=== PATIENT | female | born 1940 | race Two or more races ===

== ENCOUNTER 2022-11-22 10:03 | Emergency (ER) | payer OTHER ==
[~2022-11-22] VITALS: Ht 160 cm; Wt 67.3 kg
[2022-11-22] MEDS ORDERED: MORPHINE SULFATE 4 MG/ML SYR/VIAL IV ONE ×2 (10:30→20:15)
[2022-11-22] MEDS ORDERED: ONDANSETRON HCL 4 MG/2 ML VIAL IV ONE ×2 (10:30→20:15)
[2022-11-22 10:42] LABS: Basophils # (auto) 0.1 10 ^3/uL (0-0.2); Eosinophils # (auto) 0 10 ^3/uL (0-0.8); Eosinophils % (auto) 0.2 % (0.0-7.0); Mean Corpuscular Volume 78.7 fL (80.0-100.0); Monocytes # (auto) 0.5 10 ^3/uL (0-1.3); Neutrophils # (auto) 6.8 10 ^3/uL (1.6-8.6)
[2022-11-22 10:44] LABS: Basophils % (auto) 0.7 % (0.0-2.0); Hemoglobin 12.3 g/dL (12.2-16.2); Lymphocytes # (auto) 2.6 10 ^3/uL (0.4-5.4); Lymphocytes % (auto) 25.5 % (10.0-50.0); Mean Corpuscular Hemoglobin 26.2 pg (28.0-32.0); Mean Corpuscular Hgb Conc. 33.3 g/dL (32.0-36.0); Monocytes % (auto) 5.1 % (0.0-12.0); Neutrophils % (auto) 68.5 % (37.0-80.0); Nucleated Red Blood Cells % 0.2 %; Red Cell Distribution Width 15.9 % (11.8-14.3)
[2022-11-22 11:06] LABS: Albumin 4.1 g/dL (3.4-5.0); Bilirubin, Total 0.4 mg/dL (0.2-1.0); Calcium 9.7 mg/dL (8.5-10.1); Potassium 3.5 mmol/L (3.5-5.1); Total Protein 8.4 g/dL (6.4-8.2)
[2022-11-22 14:05] LABS: Urine WBC None Seen /hpf (0 - 5)
[2022-11-22 14:25] LABS: Urine Bacteria NONE SEEN /hpf (None Seen); Urine Blood Negative /uL (Negative); Urine Specific Gravity 1.007 (1.001-1.035)
[2022-11-22 20:49] VITALS: BP 146/55
== END 2022-11-22 21:00 ==
LOC: ER 10:03
DX: M51.37 Other intervertebral disc degeneration, lumbosacral region (principal); E11.9 Type 2 diabetes mellitus without complications; I10 Essential (primary) hypertension; Z88.6 Allergy status to analgesic agent; Z20.822 Contact with and (suspected) exposure to COVID-19
CPT/HCPCS: 36415; 72131; 80053; 81001; 85025; 87426; 93005; 96374; 96375; 96376; 99285; J2270; J2405

== ENCOUNTER 2022-12-04 12:29 | Inpatient (IN) | payer OTHER ==
[~2022-12-04] VITALS: Ht 160 cm; Wt 67.0 kg
[2022-12-04] MEDS ORDERED: MORPHINE SULFATE 4 MG/ML SYR/VIAL IV ONE (13:00)
[2022-12-04] MEDS ORDERED: ONDANSETRON HCL 4 MG/2 ML VIAL IV ONE (13:00)
[2022-12-04] MEDS ORDERED: SODIUM CHLORIDE 0.9% 1,000 ML IVB ONE (13:00)
[2022-12-04 13:24] LABS: Basophils # (auto) 0 10 ^3/uL (0-0.2); Basophils % (auto) 0.4 % (0.0-2.0); Eosinophils # (auto) 0 10 ^3/uL (0-0.8); Hematocrit 39.7 % (36.0-46.0); Hemoglobin 12.8 g/dL (12.2-16.2); Lymphocytes # (auto) 1.7 10 ^3/uL (0.4-5.4); Lymphocytes % (auto) 12.6 % (10.0-50.0); Mean Corpuscular Hemoglobin 25.9 pg (28.0-32.0); Mean Corpuscular Hgb Conc. 32.2 g/dL (32.0-36.0); Mean Corpuscular Volume 80.4 fL (80.0-100.0); Monocytes # (auto) 0.3 10 ^3/uL (0-1.3); Monocytes % (auto) 2.1 % (0.0-12.0); Neutrophils # (auto) 11.4 10 ^3/uL (1.6-8.6); Neutrophils % (auto) 84.9 % (37.0-80.0); Nucleated Red Blood Cells % 0.1 %; Red Blood Cells 4.94 10^6/uL (4.0-5.20); Red Cell Distribution Width 16.3 % (11.8-14.3); White Blood Cell 13.4 10^3/uL (4.4-10.8)
[2022-12-04 13:42] LABS: INR 0.94 (0.9-1.15)
[2022-12-04 13:51] LABS: Albumin 3.9 g/dL (3.4-5.0); Calcium 10.5 mg/dL (8.5-10.1); Magnesium 1.8 mg/dL (1.6-2.6); Potassium 3.9 mmol/L (3.5-5.1)
[2022-12-04 13:53] LABS: BUN/Creatinine Ratio 21.4
[2022-12-04 13:55] LABS: Bilirubin, Total 0.5 mg/dL (0.2-1.0)
[2022-12-04] MEDS ORDERED: ACETAMINOPHEN 325 MG TAB PO PRN (18:15)
[2022-12-04] MEDS ORDERED: MORPHINE SULFATE INJ 2 MG/ml SYRG IV PRN ×2 (18:15)
[2022-12-04] MEDS ORDERED: NITROGLYCERIN 0.4 MG SL TAB SL PRN (18:15)
[2022-12-04] MEDS ORDERED: HYDROcodone-ACET 5/325MG TAB PO PRN (18:15)
[2022-12-04] MEDS: SODIUM CHLORIDE 0.9% 1,000 ML IV SCH (18:35)
[2022-12-04] MEDS: ONDANSETRON HCL 4 MG/2 ML VIAL IV PRN (19:34)
[2022-12-04 21:42] VITALS: BP 166/93
[2022-12-04] MEDS ORDERED: LISI-716 PO (23:28)
[2022-12-04] MEDS ORDERED: DICL1GEL50 TOP (23:28)
[2022-12-04] MEDS: hydrALAZINE HCL 20 MG/ML VL IV PRN (23:29)
[2022-12-04] MEDS: PANTOPRAZOLE 40 MG/10 ML VIAL INJ IV SCH (23:29)
[2022-12-05] MEDS: SODIUM CHLORIDE 0.9% 1,000 ML IV SCH ×3 (02:35→21:22)
[2022-12-05 05:00] VITALS: BP 155/79
[2022-12-05 05:49] LABS: Basophils # (auto) 0 10 ^3/uL (0-0.2); Eosinophils # (auto) 0 10 ^3/uL (0-0.8); Lymphocytes # (auto) 1.3 10 ^3/uL (0.4-5.4); Monocytes % (auto) 3.1 % (0.0-12.0)
[2022-12-05 05:51] LABS: Basophils % (auto) 0.1 % (0.0-2.0); Hematocrit 37.7 % (36.0-46.0); Hemoglobin 12.2 g/dL (12.2-16.2); Mean Corpuscular Hemoglobin 26.1 pg (28.0-32.0); Mean Corpuscular Hgb Conc. 32.4 g/dL (32.0-36.0); Mean Corpuscular Volume 80.6 fL (80.0-100.0); Monocytes # (auto) 0.4 10 ^3/uL (0-1.3); Neutrophils # (auto) 12.6 10 ^3/uL (1.6-8.6); Neutrophils % (auto) 87.8 % (37.0-80.0); Nucleated Red Blood Cells % 0.1 %; Red Blood Cells 4.68 10^6/uL (4.0-5.20); Red Cell Distribution Width 16.6 % (11.8-14.3); White Blood Cell 14.4 10^3/uL (4.4-10.8)
[2022-12-05 06:03] LABS: Albumin 3.3 g/dL (3.4-5.0); Calcium 8.9 mg/dL (8.5-10.1); Potassium 4.1 mmol/L (3.5-5.1)
[2022-12-05 06:07] LABS: BUN/Creatinine Ratio 23.6; Bilirubin, Total 0.9 mg/dL (0.2-1.0); Total Protein 7.6 g/dL (6.4-8.2)
[2022-12-05 08:30] VITALS: BP 125/63
[2022-12-05] MEDS: cefTRIAXone 1GM/50ML D5W 50 ML IV SCH (10:18)
[2022-12-05] MEDS: PANTOPRAZOLE 40 MG/10 ML VIAL INJ IV SCH ×2 (10:18→21:22)
[2022-12-05] MEDS: ONDANSETRON HCL 4 MG/2 ML VIAL IV PRN (10:19)
[2022-12-05 12:30] VITALS: BP 165/73
[2022-12-05] MEDS ORDERED: BENZOCAINE (DENTAL) 20 % SPRAY 60ML MT ONE (16:20)
[2022-12-05] MEDS ORDERED: LIDOCAINE VISCOUS 2% 15ML UD ONE (16:20)
[2022-12-05] MEDS ORDERED: fentaNYL CITRATE 100 MCG/2 ML VL ONE (16:27)
[2022-12-05] MEDS ORDERED: MIDAZOLAM HCL 2MG/2ML 2ml VIAL (1mg/ml) ONE (16:27)
[2022-12-05] MEDS ORDERED: ACCU-CHEK COMFORT CURVE STRIP VI ONE (16:30)
[2022-12-05] MEDS ORDERED: ONDANSETRON HCL 4 MG/2 ML VIAL IV PRN (16:30)
[2022-12-05] MEDS ORDERED: LABETALOL HCL 5 MG/ML 4ML SYRINGE IV PRN (16:30)
[2022-12-05] MEDS ORDERED: MORPHINE SULFATE 4 MG/ML SYR/VIAL IV PRN (16:30)
[2022-12-05] MEDS ORDERED: ePHEDrine SULFATE 50 MG/ML AMP IV PRN (16:30)
[2022-12-05] MEDS ORDERED: MIDAZOLAM HCL 2MG/2ML 2ml VIAL (1mg/ml) IV PRN (16:30)
[2022-12-05] MEDS ORDERED: DexAMETHasone SOD PHOS 10MG/1ML VIAL INJ ONE (16:41)
[2022-12-05] MEDS ORDERED: clonazePAM 0.5 MG TAB PO PRN (16:45)
[2022-12-05 22:00] VITALS: BP 133/50
[2022-12-06] MEDS: SODIUM CHLORIDE 0.9% 1,000 ML IV SCH ×3 (03:35→20:15)
[2022-12-06 05:00] VITALS: BP 153/61
[2022-12-06 09:00] VITALS: BP 158/45
[2022-12-06] MEDS: ONDANSETRON HCL 4 MG/2 ML VIAL IV PRN ×2 (10:16→15:57)
[2022-12-06] MEDS: PANTOPRAZOLE 40 MG/10 ML VIAL INJ IV SCH ×2 (10:16→21:26)
[2022-12-06] MEDS: cefTRIAXone 1GM/50ML D5W 50 ML IV SCH (10:17)
[2022-12-06 13:00] VITALS: BP 108/72
[2022-12-06 17:00] VITALS: BP 181/73
[2022-12-06] MEDS: PROMETHAZINE HCL 25 MG/ML 1ML IV PRN (17:11)
[2022-12-06] MEDS: hydrALAZINE HCL 20 MG/ML VL IV PRN (18:16)
[2022-12-06 22:00] VITALS: BP 152/47
[2022-12-07 05:00] VITALS: BP 110/42
[2022-12-07] MEDS: SODIUM CHLORIDE 0.9% 1,000 ML IV SCH ×3 (06:49→21:15)
[2022-12-07] MEDS: PROMETHAZINE HCL 25 MG/ML 1ML IV PRN (07:13)
[2022-12-07 09:00] VITALS: BP 163/89
[2022-12-07] MEDS: hydrALAZINE HCL 20 MG/ML VL IV PRN ×3 (09:03→13:35)
[2022-12-07] MEDS: PANTOPRAZOLE 40 MG/10 ML VIAL INJ IV SCH ×2 (09:17→20:28)
[2022-12-07] MEDS: cefTRIAXone 1GM/50ML D5W 50 ML IV SCH (09:17)
[2022-12-07 13:00] VITALS: BP 157/56
[2022-12-07] MEDS ORDERED: PANT40TA2 PO (13:56)
[2022-12-07] MEDS ORDERED: SUCR1SUS10 PO (13:56)
[2022-12-07 15:27] VITALS: BP 163/89
[2022-12-07 17:00] VITALS: BP 141/60
[2022-12-07] MEDS: ONDANSETRON HCL 4 MG/2 ML VIAL IV PRN (20:29)
== END 2022-12-07 21:23 | disposition home health service (06) | DRG 381 ==
LOC: ER 12:29 → UNDOADMIN 18:10 → OVERFLOW 18:10 → WEST WING 18:10 → OBSVTOIN 18:10 → OVERFLOW 21:27 → WEST WING 21:27
PROVIDERS: ADMIT Internal Medicine; ATTEND Internal Medicine
PROC: 0DB68ZX Excision of Stomach, Via Natural or Artificial Opening Endoscopic, Diagnostic (ICD-10-PCS; 2022-12-05)
PROC: 0DB48ZX Excision of Esophagogastric Junction, Via Natural or Artificial Opening Endoscopic, Diagnostic (ICD-10-PCS; 2022-12-05)
PROC: 0DB98ZX Excision of Duodenum, Via Natural or Artificial Opening Endoscopic, Diagnostic (ICD-10-PCS; principal; 2022-12-05 16:25)
DX: K22.11 Ulcer of esophagus with bleeding (principal); N13.30 Unspecified hydronephrosis; K25.4 Chronic or unspecified gastric ulcer with hemorrhage; K29.71 Gastritis, unspecified, with bleeding; K29.81 Duodenitis with bleeding; I10 Essential (primary) hypertension; K44.9 Diaphragmatic hernia without obstruction or gangrene; K80.20 Calculus of gallbladder without cholecystitis without obstruction; E11.9 Type 2 diabetes mellitus without complications; M19.90 Unspecified osteoarthritis, unspecified site; Z20.822 Contact with and (suspected) exposure to COVID-19; Z79.899 Other long term (current) drug therapy; Z87.19 Personal history of other diseases of the digestive system; Z88.8 Allergy status to other drugs, medicaments and biological substances
CPT/HCPCS: 36415; 74176; 80053; 82962; 83690; 83735; 85025; 85610; 85730; 86850; 86900; 86901; 87426; 96361; 96374; 96375; C9113; G0378; J0696; J1100; J2250; J2405

== ENCOUNTER 2024-06-12 16:33 | Emergency (ER) | payer OTHER ==
[~2024-06-12] VITALS: Ht 162.6 cm; Wt 70.9 kg
[~2024-06-12 16:33] MED LIST: LISI10TA34 PO; PANT40TA2 PO; SUCR1SUS26 PO
[2024-06-12] MEDS ORDERED: HYDR-4902 PO (19:18)
[2024-06-12 20:28] VITALS: BP 129/61; PULSE 100; RESP 16; TEMP 98.4; O2SAT 95
[2024-06-12] MEDS: HYDROcodone-ACET 10/325MG TAB PO ONE (20:45)
== END 2024-06-12 21:13 | disposition home or self-care (01) ==
LOC: ER 16:33
DX: S82.454A Nondisplaced comminuted fracture of shaft of right fibula, initial encounter for closed fracture (principal); E11.9 Type 2 diabetes mellitus without complications; I10 Essential (primary) hypertension; Z79.899 Other long term (current) drug therapy; W01.0XXA Fall on same level from slipping, tripping and stumbling without subsequent striking against object, initial encounter; Y93.89 Activity, other specified; Y92.89 Other specified places as the place of occurrence of the external cause; Y99.8 Other external cause status
CPT/HCPCS: 29505; 73502; 73562; 73590; 73610